=== PATIENT | male | born 1965 | race Caucasian/White ===

== ENCOUNTER 2022-01-29 17:42 | Emergency (ER) | payer BC ==
[~2022-01-29] VITALS: Ht 177.8 cm; Wt 71.2 kg
== END 2022-01-29 21:19 | disposition home or self-care (01) ==
LOC: ER 17:42
DX: S90.451A Superficial foreign body, right great toe, initial encounter (principal); S60.451A Superficial foreign body of left index finger, initial encounter; X58.XXXA Exposure to other specified factors, initial encounter; Y93.11 Activity, swimming; Y92.832 Beach as the place of occurrence of the external cause; Y99.8 Other external cause status